=== PATIENT | female | born 1985 | race Caucasian/White ===

== ENCOUNTER 2017-04-16 05:11 | Day surgery (SDC) | payer OTHER ==
[2017-04-14 11:14] LABS: APPEARANCE,URINE CLEAR; BILIRUBIN,URINE NEGATIVE (NEGATIVE); GLUCOSE, URINE NEGATIVE (NEGATIVE); KETONES,URINE NEGATIVE (NEGATIVE); LEUKOCYTE ESTERASE,URINE SMALL (NEGATIVE); NITRITE,URINE NEGATIVE (NEGATIVE); PROTEIN,URINE NEGATIVE (NEGATIVE); URINE SPECIFIC GRAVITY 1.002; UROBILINOGEN,URINE NEGATIVE mg/dL (<2.0)
[2017-04-14 11:28] LABS: HEMATOCRIT 40.6 % (36.0-47.0); HEMOGLOBIN 13.6 g/dL (12.0-15.5); HGB HCT DIFFERENCE 0.2; MEAN CORPUSCULAR HEMOGLOBIN 30.3 pg (27.0-33.4); MEAN CORPUSCULAR HGB CONC 33.4 g/dL (32.0-36.0); MEAN CORPUSCULAR VOLUME 91 fl (80-97); RED BLOOD COUNT 4.48 10^6/uL (3.72-5.28); RED CELL DISTRIBUTION WIDTH 13.8 % (11.5-14.0); WHITE BLOOD COUNT 9.3 10^3/uL (4.0-10.5)
[2017-04-14 11:46] LABS: ANION GAP 12 (5-19); BLOOD UREA NITROGEN 8 mg/dL (7-20); CALCIUM 9.5 mg/dL (8.4-10.2); CARBON DIOXIDE 25 mmol/L (22-30); CHLORIDE 103 mmol/L (98-107); CREATININE RESULT 0.62 mg/dL (0.52-1.25); GLUCOSE 83 mg/dL (75-110); POTASSIUM 4.2 mmol/L (3.6-5.0)
--- NOTE | 2017-04-14 19:48 | EKG REPORT ---
SEVERITY:- NORMAL ECG - SINUS RHYTHM : Confirmed by: Arash Mckeon MD 14-Apr-2017 19:46:16
[~2017-04-16 05:11] MED LIST: LACTATED RINGERS 1000 ML IV PRN; LIDOCAINE 0.5% INJ-PF (5 MG/ML) 50 ML SDV SUBCUT PRN
[2017-04-16] MEDS ORDERED: BUPIVACAINE HCL 0.25 % INJ/PF (2.5 MG/1 ML) 30 ML VIAL ONE (06:06)
[2017-04-16] MEDS ORDERED: SCOPOLAMINE HYDROBROMIDE 1.5 MG PATCH.TD72 ONE (07:03)
[2017-04-16] MEDS ORDERED: PROPOFOL INJ 200 MG/20 ML VIAL IV ONE (07:04)
[2017-04-16] MEDS ORDERED: ACETAMINOPHEN 100 ML IV ONE (07:04)
[2017-04-16] MEDS ORDERED: MIDAZOLAM 2 MG/2 ML INJ ONE (07:04)
[2017-04-16] MEDS ORDERED: FENTANYL CITRATE INJ/PF 100 MCG/2 ML AMPUL ONE (07:04)
[2017-04-16] MEDS ORDERED: FENTANYL CITRATE INJ/PF 100 MCG/2 ML AMPUL IV PRN ×2 (07:37)
[2017-04-16] MEDS ORDERED: DIPHENHYDRAMINE HCL 50 MG/ML VIAL IV PRN (07:37)
[2017-04-16] MEDS ORDERED: PROMETHAZINE HCL INJ 25 MG/1 ML VIAL IV PRN ×2 (07:37)
[2017-04-16] MEDS ORDERED: MORPHINE SULFATE 10 MG/ML INJ IV PRN (07:37)
[2017-04-16] MEDS ORDERED: MEPERIDINE HCL/PF INJ 25 MG/1 ML DISP.SYRIN IV PRN (07:37)
[2017-04-16] MEDS ORDERED: MORPHINE INJ 4 MG DOSE (EDIT ROUTE) INJ PRN (08:30)
[2017-04-16] MEDS ORDERED: PROMETHAZINE HCL INJ 25 MG/1 ML VIAL IM PRN (08:30)
[2017-04-16] MEDS ORDERED: OXYCODONE-ACETAMINOPHEN 5-325 MG TABLET PO PRN (08:30)
[2017-04-16] MEDS: FENTANYL CITRATE INJ/PF 100 MCG/2 ML AMPUL ONE ×2 (08:33→08:38)
--- NOTE | 2017-04-16 09:13 | OPERATIVE REPORT E ---
Operative Report NAME: MANA CAMERON : 1985 AGE: 32Y DATE OF SURGERY: 04/16/2017 ROOM: PREOPERATIVE DIAGNOSIS: Chronic pelvic pain and dyspareunia. POSTOPERATIVE DIAGNOSES: 1. Chronic pelvic pain and dyspareunia. 2. Mild endometriosis. 3. Small 2 cm subserous fundal fibroid. 4. Normal gallbladder, appendix not visualized. Normal anterior cul-de-sac, small amount of posterior cul-de-sac, and left ovarian adherent mild endometriosis involving the course of the left ureter. Both ovaries appeared to be somewhat atrophic in nature without follicular development. SURGEON: COOKIE CAMPBELL M.D. INDICATIONS FOR PROCEDURE: The patient had longstanding dyspareunia and chronic pelvic pain. This looks to be located primarily on the left side, but occasionally on the right side of her pelvis. She has been treated as an outpatient with outpatient contraception. The usual risks of bleeding, infection, anesthesia, and damage to organs and tissues have been discussed with the patient. Ultrasound demonstrated the above mentioned leiomyoma, appear to be outside of the source of her pain. She desires future conception. DESCRIPTION OF PROCEDURE: The patient was taken to the operating room and placed in the modified lithotomy position after adequate anesthesia ascertained. Prepped and draped in the usual manner for a diagnostic laparoscopy. *------*, which was placed under open technique after the bladder had been drained under sterile technique and surgical time-out performed. The peritoneum was entered without difficulty. The cannula was placed. Gas was instilled and above noted findings were appreciated using the scope and assistance of a 5 mm port placed approximately 3 fingerbreadths above the symphysis pubis. With some difficulty, the adherent left ovary was removed from the sidewall and photographs were taken of this area. This freed things up nicely and more fully mobile in the more natural state. A small amount of posterior cul-de-sac was identified, left in situ. At completion of this, survey of the pelvis was completed. Gas was removed and the fascia of the umbilical site was closed with a 0 Vicryl stitch and subcuticular stitches of 3-0 Chromic catgut was used in both the suprapubic and umbilical area. DICTATING PHYSICIAN: COOKIE CAMPBELL M.D. [id number] PHY#: [id number] ID: [id number] JOB#: [id number] ACCT: [id number] cc:COOKIE CAMPBELL M.D. >
[2017-04-16 11:53] VITALS: BP 119/70
[2017-04-16] MEDS ORDERED: IBUPROFEN 800 MG TABLET PO SCH (14:00)
[2017-04-16] MEDS ORDERED: DEXAMETHASONE SOD PHOSPHATE INJ 4 MG/1 ML VIAL ONE (14:07)
[2017-04-16] MEDS ORDERED: LIDOCAINE 2% INJ-PF (20 MG/ML) 10 ML AMPUL ONE (14:07)
[2017-04-16] MEDS ORDERED: SUCCINYLCHOLINE CHLORIDE INJ 200 MG/10 ML VIAL ONE (14:07)
[2017-04-16] MEDS ORDERED: ONDANSETRON HCL INJ/PF 4 MG/2 ML SDV ONE (14:07)
[2017-04-16] MEDS ORDERED: KETOROLAC TROMETHAMINE 60 MG/2 ML SDV ONE (14:07)
== END 2017-04-16 10:35 | disposition home or self-care (01) ==
LOC: OROUT 05:11
PROVIDERS: ATTEND Specialist
PROC: 0WJJ4ZZ Inspection of Pelvic Cavity, Percutaneous Endoscopic Approach (ICD-10-PCS; principal; 2017-04-16 07:15)
DX: N94.10 Unspecified dyspareunia (principal); D25.2 Subserosal leiomyoma of uterus; N80.0 Endometriosis of uterus; R10.2 Pelvic and perineal pain; Z79.899 Other long term (current) drug therapy; Z79.3 Long term (current) use of hormonal contraceptives; Z88.0 Allergy status to penicillin
CPT/HCPCS: 93005; 86900; 86901; 36415; 86850; 85027; 81025; 80048; 81001; 93010; 49320; J2250; J1100; J1885; J3010; J0330; J2405; J2704; J3490; J0131; 790

== ENCOUNTER 2017-11-26 05:22 | Day surgery (SDC) | payer BC, OTHER ==
[2017-11-24 13:27] LABS: HEMATOCRIT 41.5 % (36.0-47.0); HEMOGLOBIN 13.9 g/dL (12.0-15.5); MEAN CORPUSCULAR HEMOGLOBIN 29.6 pg (27.0-33.4); MEAN CORPUSCULAR HGB CONC 33.5 g/dL (32.0-36.0); MEAN CORPUSCULAR VOLUME 89 fl (80-97); PLATELET COUNT 324 10^3/uL (150-450); RED BLOOD COUNT 4.69 10^6/uL (3.72-5.28); RED CELL DISTRIBUTION WIDTH 13.5 % (11.5-14.0); WHITE BLOOD COUNT 12.4 10^3/uL (4.0-10.5)
[2017-11-24 13:31] LABS: APPEARANCE,URINE CLEAR; BILIRUBIN,URINE NEGATIVE (NEGATIVE); COLOR,URINE STRAW; GLUCOSE, URINE NEGATIVE (NEGATIVE); KETONES,URINE NEGATIVE (NEGATIVE); LEUKOCYTE ESTERASE,URINE TRACE (NEGATIVE); NITRITE,URINE NEGATIVE (NEGATIVE); PROTEIN,URINE NEGATIVE (NEGATIVE); URINE SPECIFIC GRAVITY 1.003; UROBILINOGEN,URINE NEGATIVE mg/dL (<2.0)
[2017-11-24 13:58] LABS: ANION GAP 16 (5-19); BLOOD UREA NITROGEN 9 mg/dL (7-20); CALCIUM 9.4 mg/dL (8.4-10.2); CARBON DIOXIDE 22 mmol/L (22-30); CHLORIDE 105 mmol/L (98-107); GLUCOSE 79 mg/dL (75-110); POTASSIUM 4.2 mmol/L (3.6-5.0); SODIUM 143.1 mmol/L (137-145)
[~2017-11-26 05:22] MED LIST changes: +CLINDAMYCIN 600 MG/D5W RTU 600 MG/50 ML RTUPB IV PRN
[2017-11-26] MEDS ORDERED: BUPIVACAINE INJ/PF LIPOSOME/PF 266 MG/20 ML SDV ONE (06:36)
[2017-11-26] MEDS ORDERED: MIDAZOLAM 2 MG/2 ML INJ ONE (07:08)
[2017-11-26] MEDS ORDERED: FENTANYL CITRATE INJ/PF 250 MCG/5 ML AMPULE ONE (07:08)
[2017-11-26] MEDS ORDERED: PROPOFOL INJ 200 MG/20 ML VIAL IV ONE (07:09)
[2017-11-26] MEDS ORDERED: PROMETHAZINE HCL INJ 25 MG/1 ML VIAL IV PRN ×2 (07:47)
[2017-11-26] MEDS ORDERED: DIPHENHYDRAMINE HCL 50 MG/ML VIAL IV PRN (07:47)
[2017-11-26] MEDS ORDERED: FENTANYL CITRATE INJ/PF 100 MCG/2 ML AMPUL IV PRN ×3 (07:47)
[2017-11-26] MEDS ORDERED: MORPHINE INJ 8 MG DOSE IM PRN (09:00)
[2017-11-26] MEDS ORDERED: MORPHINE INJ 6 MG DOSE (EDIT ROUTE) INJ PRN (09:00)
[2017-11-26] MEDS ORDERED: PROMETHAZINE HCL INJ 25 MG/1 ML VIAL IM PRN (09:00)
[2017-11-26] MEDS ORDERED: MORPHINE INJ 4 MG DOSE (EDIT ROUTE) INJ PRN (09:00)
--- NOTE | 2017-11-26 09:09 | OPERATIVE REPORT E ---
Operative Report NAME: MANA CAMERON : 1985 AGE: 32Y DATE OF SURGERY: 11/26/2017 ROOM: PREOPERATIVE DIAGNOSIS: Uterine leiomyoma and dyspareunia. POSTOPERATIVE DIAGNOSIS: Uterine leiomyoma and dyspareunia. OPERATION: Exploratory mini laparotomy and myomectomy. SURGEON: COOKIE CAMPBELL M.D. ANESTHESIA: General endotracheal and Exparel given to the patient postop 25 mL. COMPLICATIONS: None. FINDINGS: Findings are that of a fundal fibroid comprising approximately 30% of the uterus proper. Normal tubes and ovaries were identified bilaterally. INDICATIONS: The patient had longstanding dyspareunia and worsening of pelvic pain unresponsive to outpatient management. Desires attempt at definitive therapy. No guarantees have been given regarding the future outcome of pain management *------* had been made with the patient. The usual risks of bleeding, infection, anesthesia, damage to organs or tissues were discussed with the patient who understood. PROCEDURE: The patient was taken to the operating room and placed in modified lithotomy position. After adequate anesthesia was ascertained, prepped an draped in the usual manner for a mini laparotomy. Anthony catheter was inserted in the bladder. After a surgical timeout was performed, a EUA performed. A Hulka tenaculum was initially placed in the uterus, but it was a poor fit and it was removed. The surgeon re-gloved and through a mini laparotomy incision, subcutaneous fat and fascia, the peritoneum was entered without difficulty. A self-retaining retractor placed. The uterus was brought into the operative field. Survey of the abdomen completed. The fibroid was removed with sharp and blunt dissection. It was oversewn using multiple layers of 2-0 chromic catgut in a subcuticular fashion. Good hemostasis was noted. At completion of this aspect of the procedure, the abdomen was copiously irrigated, good hemostasis was assured. The parietal peritoneum was noted to be dry. The rectus fascia was closed with 0 PDS. Skin approximated with skin arley. Exparel infiltration of approximately 25 mL was used throughout the subcutaneous area bilaterally. All sponge and needle counts were correct. DICTATING PHYSICIAN: COOKIE CAMPBELL M.D. [id number] [facility]#: [id number] ID: [id number] JOB#: [id number] ACCT: [id number] cc:COOKIE CAMPBELL M.D. >
[2017-11-26] MEDS ORDERED: MORPHINE SULFATE 10 MG/ML INJ ONE (09:19)
[2017-11-26 10:18] VITALS: BP 124/90
[2017-11-26] MEDS ORDERED: CEFAZOLIN 1 GM RTU (EDIT START TIME) IV SCH (12:00)
[2017-11-26] MEDS ORDERED: IBUPROFEN 800 MG TABLET PO SCH (14:00)
[2017-11-26] MEDS ORDERED: LIDOCAINE 2% INJ-PF (20 MG/ML) 2 ML AMPUL ONE (14:51)
[2017-11-26] MEDS ORDERED: DEXAMETHASONE SOD PHOSPHATE INJ 4 MG/1 ML VIAL ONE (14:51)
[2017-11-26] MEDS ORDERED: ONDANSETRON HCL INJ/PF 4 MG/2 ML SDV ONE (14:51)
[2017-11-26] MEDS ORDERED: SUCCINYLCHOLINE CHLORIDE INJ 200 MG/10 ML VIAL ONE (14:51)
== END 2017-11-26 10:15 | disposition home or self-care (01) ==
LOC: OROUT 05:22 → EDSTATUS 07:15 → OROUT 10:15
PROVIDERS: ATTEND Specialist
PROC: 0UB90ZZ Excision of Uterus, Open Approach (ICD-10-PCS; principal; 2017-11-26 07:15)
DX: N94.10 Unspecified dyspareunia (principal); D25.9 Leiomyoma of uterus, unspecified; Z79.3 Long term (current) use of hormonal contraceptives; Z88.0 Allergy status to penicillin; Z88.5 Allergy status to narcotic agent
CPT/HCPCS: 86900; 86901; 36415; 86850; 85027; 81025; 80048; 81001; 88342 ×2; 88341 ×2; 88305 ×2; 88313 ×2; 58140; J2250; J1100; J3010; J2270; J0330; J2405; J2704; C9290; J3490; 840